=== PATIENT | female | born 1960 | race Caucasian/White ===

== ENCOUNTER 2023-02-27 10:42 | Emergency (ER) | payer MEDICARE, OTHER ==
[~2023-02-27] VITALS: Ht 162.6 cm; Wt 52.2 kg
[2023-02-27 10:43] VITALS: O2SAT 97
[2023-02-27] MEDS ORDERED: ATOR20TA PO (11:33)
[2023-02-27] MEDS ORDERED: CLON2TAB11 PO (11:33)
[2023-02-27] MEDS ORDERED: DESM0.2T23 PO (11:33)
[2023-02-27] MEDS ORDERED: CALC1TAB30 PO (11:33)
[2023-02-27] MEDS ORDERED: ACET325T53 PO (11:33)
[2023-02-27] MEDS ORDERED: LEVE750T4 PO (11:33)
[2023-02-27] MEDS ORDERED: HYDR-3976 PO (11:33)
[2023-02-27] MEDS ORDERED: OXYB5TAB16 PO (11:33)
[2023-02-27] MEDS ORDERED: DIVA-78 PO (11:33)
[2023-02-27] MEDS ORDERED: LORA0.5T48 PO (11:33)
[2023-02-27] MEDS ORDERED: LEVO125T8 PO (11:33)
[2023-02-27] MEDS ORDERED: QUET300T2 PO (11:33)
[2023-02-27] MEDS ORDERED: PYRI100T18 PO (11:33)
[2023-02-27] MEDS ORDERED: DOCU-141 PO (11:33)
[2023-02-27] MEDS ORDERED: LORAZEPAM 2 MG/1 ML VIAL IM ONE (13:30)
[2023-02-27] MEDS ORDERED: diphenhydrAMINE 50 MG/1 ML VIAL IM ONE (13:30)
[2023-02-27] MEDS ORDERED: HALOPERIDOL LACTATE 5 MG/1 ML VIAL IM ONE (13:30)
[2023-02-27] MEDS ORDERED: diphenhydrAMINE 50 MG/1 ML VIAL ONE (13:33)
[2023-02-27] MEDS ORDERED: LORAZEPAM 2 MG/1 ML VIAL ONE (13:34)
[2023-02-27] MEDS ORDERED: HALOPERIDOL LACTATE 5 MG/1 ML VIAL ONE (13:34)
[2023-02-27] MEDS ORDERED: levETIRAcetam 250 MG TABLET ONE (13:44)
[2023-02-27] MEDS ORDERED: levETIRAcetam 250 MG TABLET PO ONE (13:45)
[2023-02-27] MEDS ORDERED: ZIPRASIDONE MESYLATE 20 MG VIAL IM ONE (14:45)
== END 2023-02-27 17:15 ==
LOC: ER 10:42
DX: F29 Unspecified psychosis not due to a substance or known physiological condition (principal); F31.9 Bipolar disorder, unspecified; J44.9 Chronic obstructive pulmonary disease, unspecified; Z79.899 Other long term (current) drug therapy
CPT/HCPCS: 99285; 93005; 96372 ×3; J1200; J1630; J2060; A4663